=== PATIENT | female | born 2000 ===

== ENCOUNTER → 2021-10-27 10:42 | Outpatient (CLI) | payer OTHER, SELFPAY ==
--- NOTE | 2021-10-27 10:43 | DI.US.S_ITS ---
PROCEDURE: US ABDOMEN LIMITED INDICATIONS: Right groin pain, R/O hernia or tear TECHNIQUE: Real-time focused scanning was performed of the inguinal region, with image documentation. COMPARISON: None. FINDINGS: There are multiple normal appearing lymph nodes in the bilateral inguinal canals. No hernia visualized. No sonographic abnormalities. IMPRESSION: No sonographic findings to suggest right inguinal hernia. Dictated by: Tamar Wakefield M.D. on 10/27/2021 at 16:32 Approved by: Tamar Wakefield M.D. on 10/27/2021 at 16:34
== END ==
PROVIDERS: PCP Family Medicine; Referring Provider Family Medicine; Visit Provider Family Medicine
DX: R10.31 Right lower quadrant pain (principal)
CPT/HCPCS: 76705

== ENCOUNTER 2022-10-23 14:26 | Emergency (ER) | payer OTHER, SELFPAY ==
[2022-10-23 14:29] VITALS: BP 101/58; PULSE 63; RESP 18; TEMP 36.8; O2SAT 100; BMI 18.0
[2022-10-23] MEDS: SODIUM CHLORIDE 0.9% 1,000 ML 1000 ML IV (14:52)
[2022-10-23 14:55] VITALS: BP 109/72; PULSE 78; RESP 16; O2SAT 100
[2022-10-23 14:56] LABS: Add Manual Diff / Slide Review NO; Basophils Absolute Auto 0 /uL (0-100); Basophils Percent Auto 0.2 % (0-2); Eosinophils Absolute Auto 100 /uL (0-450); Eosinophils Percent Auto 0.7 % (2-4); Hematocrit 39.1 % (36-46); Hemoglobin 13.3 g/dL (12.0-16.0); Lymphocytes Absolute Auto 2000 /uL (1100-4500); Mean Corpuscular Hemoglobin 31.3 PG (26-34); Mean Corpuscular Volume 92.1 fL (80-100); Monocytes Absolute Auto 500 /uL (0-900); Monocytes Percent Auto 5.4 % (3-14); Neutrophils Absolute Auto 7700 /uL (1500-7000); Neutrophils Percent Auto 74.7 % (50-75); Platelet Count 217 X10^3/uL (150-400); Red Blood Cell Count 4.24 X10^6/uL (4.0-5.2); Red Cell Distribution Width 12.5 % (11.6-14.8); White Blood Cell Count 10.2 X10^3/uL (4.5-11.0)
--- NOTE | 2022-10-23 14:58 | PC.NURSE ---
Patient had a witnessed vasovagal response to PIV start. Patient c/o nausea, became diaphoretic, and eventually briefly lost consciousness and had spasms in bilateral arms. Was unconscious for less than 2 seconds and was fully conscious and feeling better immediately. Patient is noted for a baseline low heart rate in high 40's to 60's. Mom present chair side with patient.
[2022-10-23 15:10] LABS: Alanine Aminotransferase 14 IU/L (<35); Albumin 4.5 g/dL (3.5-5.0); Albumin Globulin Ratio 1.7 (1.0-2.8); Alkaline Phosphatase 33 U/L (38-126); Aspartate Aminotransferase 24 IU/L (14-36); BUN Creatinine Ratio 13.6 (6-22); Bilirubin Total 0.4 mg/dL (0.2-1.3); Blood Urea Nitrogen 9 mg/dL (7-17); Calcium 8.9 mg/dL (8.4-10.2); Carbon Dioxide 27 mmol/L (22-32); Chloride 103 mmol/L (98-107); Estimated Glomerular Filt Rate > 60 mL/min (>60); Globulin 2.7 g/dL (1.7-4.1); Glucose 93 mg/dL (70-100); HEMOLYSIS 19 (0-50); Lipase 111 U/L (23-300); Potassium 3.7 mmol/L (3.4-5.1); Sodium 137 mmol/L (137-145); Total Protein 7.2 g/dL (6.3-8.2)
[2022-10-23 16:15] VITALS: BP 109/72; PULSE 82; O2SAT 100
--- NOTE | 2022-10-23 16:32 | ED.GENADULT ---
HPI - General Adult General Chief complaint: Abdominal Pain Stated complaint: lower RT side abd pain Time Seen by Provider: 10/23/22 16:16 Source: patient Mode of arrival: Ambulatory History of Present Illness HPI narrative: Patient is a 22-year-old female who is here for evaluation of approximately 3 hours of right-sided abdominal/adnexal discomfort. She did have some diarrhea earlier today but this is before the abdominal pain. No vaginal bleeding. Her last menstrual cycle was 2 weeks ago. She does have an IUD in place. No urinary symptoms. She thought that urinating maybe helped her symptoms. She states that right now her pain is actually much improved and what it was earlier. No fevers. No nausea or vomiting. No skin changes. Related Data Previous Rx's Medication Instructions Recorded fluoxetine 10 mg capsule 10 mg PO DAILY #60 caps 10/04/21 Allergies Allergy/AdvReac Type Severity Reaction Status Date / Time amoxicillin AdvReac Hives Verified 10/23/22 14:35 Review of Systems Constitutional Constitutional: Reports system reviewed and no additional complaints, except as documented Gastrointestinal Gastrointestinal: Reports system reviewed and no additional complaints, except as documented Genitourinary Genitourinary: Reports system reviewed and no additional complaints, except as documented Musculoskeletal Musculoskeletal: Reports system reviewed and no additional complaints, except as documented Integumentary/Breasts Skin/Breast: Reports system reviewed and no additional complaints, except as documented Patient History Social History Smoking Status: Current every day smoker Smoking Status: Current every day smoker alcohol intake frequency: a few times a month Substance Use Type: marijuana Exam Initial Vital Signs Initial Vital Signs: Vital Signs Temperature 98.2 F 10/23/22 14:29 Pulse Rate 63 10/23/22 14:29 Respiratory Rate 18 10/23/22 14:29 Blood Pressure 101/58 L 10/23/22 14:29 Pulse Oximetry 100 10/23/22 14:29 Oxygen Delivery Method Room Air 10/23/22 14:29 Const General: cooperative, comfortable and No ill appearing HENMT Head: normal to inspection and normocephalic Resp Effort & Inspection: normal respiratory effort Cardio Rate: regular rate GI Inspection: normal to inspection and non-distended Palpation: soft, No firm, No guarding and tender (Mild right lower quadrant/right and ) Back/Spine/Pelvis Back: No CVA tenderness Neuro General: patient alert, patient awake and moves all extremities Course Orders Ordered: ED Orders 10/23/22 14:43 Complete Blood Count AUTO DIFF Stat Comprehensive Metabolic Panel Stat Lipase Stat Ondansetron HCl (Ondansetron 4 Mg Odt) 4 mg PO NOW PRN PRN Reason: Nausea And Vomiting Ondansetron HCl (Ondansetron 4 Mg/2 Ml Inj) 4 mg IV NOW PRN PRN Reason: Nausea And Vomiting Discontinued Medications Sodium Chloride (Normal Saline 0.9%) 1,000 mls @ 1,000 mls/hr IV BOLUS ONE Stop: 10/23/22 15:47 Last Infusion: 10/23/22 16:03 Dose: 0 mls/hr Documented By: Admin: 10/23/22 14:52 Dose: 1,000 mls/hr Documented By: ZULY Vital Signs Vital signs: Vital Signs - 8 hr 10/23/22 14:29 10/23/22 14:55 10/23/22 16:15 Temperature 98.2 F Pulse Rate 63 78 82 Respiratory Rate 18 16 Blood Pressure 101/58 L 109/72 109/72 Pulse Oximetry 100 100 100 Oxygen Delivery Method Room Air Room Air Room Air Medical Decision Making Lab Data Lab results reviewed: Yes I reviewed the patient's lab results. 10/23/22 14:43 10/23/22 14:43 Labs: Lab Results 10/23/22 10/23/22 Range/Units 14:43 14:43 WBC 10.2 (4.5-11.0) X10^3/uL RBC 4.24 (4.0-5.2) X10^6/uL Hgb 13.3 (12.0-16.0) g/dL Hct 39.1 (36-46) % MCV 92.1 (80-100) fL MCH 31.3 (26-34) PG MCHC 34.0 (30-36) % RDW 12.5 (11.6-14.8) % Plt Count 217 (150-400) X10^3/uL Neut % (Auto) 74.7 (50-75) % Lymph % (Auto) 19.0 L (25-40) % [place] % (Auto) 5.4 (3-14) % Eos % (Auto) 0.7 L (2-4) % Baso % (Auto) 0.2 (0-2) % Neut # (Auto) 7700 H (2548-2045) /uL Lymph # (Auto) 2000 (0103-2202) /uL [place] # (Auto) 500 (0-900) /uL Eos # (Auto) 100 (0-450) /uL Baso # (Auto) 0 (0-100) /uL Sodium 137 (137-145) mmol/L Potassium 3.7 (3.4-5.1) mmol/L Chloride 103 (98-107) mmol/L Carbon Dioxide 27 (22-32) mmol/L BUN 9 (7-17) mg/dL Creatinine 0.66 (0.52-1.04) mg/dL Estimated GFR > 60 (>60) mL/min BUN/Creatinine Ratio 13.6 (6-22) Glucose 93 (70-100) mg/dL Calcium 8.9 (8.4-10.2) mg/dL Total Bilirubin 0.4 (0.2-1.3) mg/dL AST 24 (14-36) IU/L ALT 14 (<35) IU/L Alkaline Phosphatase 33 L (38-126) U/L Total Protein 7.2 (6.3-8.2) g/dL Albumin 4.5 (3.5-5.0) g/dL Globulin 2.7 (1.7-4.1) g/dL Albumin/Globulin Ratio 1.7 (1.0-2.8) Lipase 111 (23-300) U/L Point of Care Testing Test Results Negative Urine Dip Bedside Urine Glucose Negative Bedside Urine Bilirubin - Negative Bedside Urine Ketone - Negative Urine Specific [place] 1.010 Bedside Urine Occult Blood - Negative Bedside Urine pH 6.0 Bedside Urine Protein - Negative Bedside Urine Urobilinogen - Negative Bedside Urine Nitrite - Negative Bedside Urine Leukocytes - Negative Esterase Point of care testing: Point of Care Testing Test Results Negative Urine Dip Bedside Urine Glucose Negative Bedside Urine Bilirubin - Negative Bedside Urine Ketone - Negative Urine Specific [place] 1.010 Bedside Urine Occult Blood - Negative Bedside Urine pH 6.0 Bedside Urine Protein - Negative Bedside Urine Urobilinogen - Negative Bedside Urine Nitrite - Negative Bedside Urine Leukocytes - Negative Esterase [facility] Narrative Medical decision making narrative: Had a long discussion with the patient and family at bedside regarding what we should do today. We discussed potentially obtaining a CT scan or an ultrasound for evaluation of appendicitis or ovarian pathology. She is not having any discomfort now. She stood at bedside. I have low suspicion for an acute surgical issue. After this discussion the patient opted to go home and return if her symptoms worsen. Discharge Plan Departure Patient Disposition: Home Clinical Impression: Abdominal pain Instructions: DI for Abdominal Pain-Adult Activity Restrictions/Additional Instructions: Recommend that you continue to take all of your medications as directed. Contact your primary doctor for follow-up and return to the emergency department for new or worsening symptoms. Prescriptions: No Action fluoxetine 10 mg capsule 10 mg PO DAILY Qty: 60 2RF Rx Instructions: Take one tab daily, increase to 2 tabs daily after 2 weeks Referrals: Teresa Santillan MD [Primary Care Provider] - Stand Alone Forms: Patient Portal/API
[2022-10-23 18:01] VITALS: BP 94/55; PULSE 62; RESP 20; O2SAT 100
== END 2022-10-23 18:00 | disposition home or self-care (01) ==
PROVIDERS: Emergency Provider Emergency Medicine; PCP Family Medicine
DX: R10.31 Right lower quadrant pain (principal)
CPT/HCPCS: 36415; 80053; 81003; 81025; 83690; 85025; 96360; 99284